=== PATIENT | female | born 1975 | race Two or more races ===

== ENCOUNTER 2017-12-24 16:49 | Emergency (ER) | payer SELFPAY ==
[~2017-12-24] VITALS: Ht 152.4 cm; Wt 87.0 kg
[~2017-12-24 16:49] MED LIST: OXYC-302 PO
[2017-12-24 17:28] LABS: BASOPHILS # (AUTO) 0.06 x10^3/uL (0-0.1); BASOPHILS % (AUTO) 1 % (0-1); EOSINOPHILS # (AUTO) 0.08 x10^3/uL (0-0.4); EOSINOPHILS % (AUTO) 1 % (1-7); LYMPHOCYTES # (AUTO) 3.16 x10^3/uL (1-3.4); LYMPHOCYTES % (AUTO) 31 % (22-44); MD NO; MEAN CORPUSCULAR HEMOGLOBIN 20.7 pg (27.0-34.8); MEAN CORPUSCULAR HGB CONC 30.8 g/dL (32.4-35.8); MEAN CORPUSCULAR VOLUME 67.3 fL (80-100); MEAN PLATELET VOLUME 7.5 fL (7.4-10.4); MONOCYTES # (AUTO) 0.83 x10^3/uL (0.2-0.8); MONOCYTES % (AUTO) 8 % (2-9); NEUTROPHILS # (AUTO) 6.25 x10^3/uL (1.8-6.8); NEUTROPHILS % (AUTO) 60 % (42-75); PLATELET COUNT 558 x10^3/uL (130-400); RED BLOOD COUNT 4.63 x10^6/uL (3.82-5.3); RED CELL DISTRIBUTION WIDTH 18.9 % (9.6-15.2)
[2017-12-24 17:36] LABS: MICROSCOPIC AUTO
[2017-12-24 17:37] LABS: CULTURE INDICATED? YES
[2017-12-24 17:40] LABS: ALANINE AMINOTRANSFERASE 20 U/L (12-78); ALBUMIN 3.4 g/dL (3.4-5.0); ANION GAP 10 mmol/L (5-15); CALCIUM 8.8 mg/dL (8.5-10.1); CHLORIDE 103 mmol/L (98-107)
[2017-12-24 17:44] LABS: ALKALINE PHOSPHATASE 106 U/L (45-117); BILIRUBIN,TOTAL 0.2 mg/dL (0.2-1.0); TOTAL PROTEIN 8.2 g/dL (6.4-8.2)
[2017-12-24 18:00] VITALS: BP 137/87
== END 2017-12-24 20:30 | disposition home or self-care (01) ==
LOC: ED 20:00
DX: K44.9 Diaphragmatic hernia without obstruction or gangrene (principal); D50.8 Other iron deficiency anemias; R58 Hemorrhage, not elsewhere classified
CPT/HCPCS: 36415; 74220; 76830; 80053; 81001; 84703; 85025; 87077; 87086; 87186; 99285